=== PATIENT | female | born 1955 | race Caucasian/White ===

== ENCOUNTER 2021-10-12 09:16 | Emergency (ER) | payer MEDICARE, SELFPAY ==
[2021-10-12 09:17] VITALS: BP 164/80; PULSE 57; RESP 22; TEMP 35.4; O2SAT 98; BMI 39.2
--- NOTE | 2021-10-12 09:25 | EDS_ITS ---
HPI History of Present Illness Chief Complaint: Upper Extremity Injury Detail of Chief Complaint: Injury to right shoulder Informant: patient Narrative Narrative: Patient presents with a fall and injury to her right shoulder that occurred this morning while taking her grandson to the bus stop. Patient is right-hand dominant. She denies striking her head. She denies loss of consciousness. She denies neck or chest pain. She denies abdominal pain. She has been ambulatory in the department. PFSH PFSH Home Medications albuterol sulfate [Ventolin Hfa] 18 g INHALATION BID 03/24/16 [History Last Taken Unknown] escitalopram oxalate 20 mg PO DAILY 03/24/16 [History Last Taken Unknown] hydrochlorothiazide 12.5 mg PO DAILY 03/24/16 [History Last Taken Unknown] metoprolol tartrate 50 mg PO DAILY 03/24/16 [History Last Taken Unknown] hydrocodone-acetaminophen 1 tab PO Q4H PRN PRN 2 Days #15 tablet 10/12/21 [Rx Last Taken Unknown] Allergy/AdvReac Type Severity Reaction Status Date / Time No Known Allergies Allergy Verified 10/12/21 09:17 Social History Smoking Status: Never smoker ROS ROS ED Constitutional Constitutional ED: Reports systems reviewed and no addt'l complaints, except as documented; Denies body ache(s), change in weight or chills Eyes Eyes: Denies acute decrease in peripheral vision, change in vision, double vision or loss of vision ENT ENT ED: Reports none; Denies ear pain, lip swelling, loss taste/smell, neck pain, otalgia or sore throat Cardiovascular Cardiovascular: Reports none; Denies abdominal pain, chest pain with activity, leg edema, lightheadedness, palpitations, rapid heart rate or syncope Respiratory/Chest Respiratory/Chest: Reports none; Denies change in mental status, dry cough, dyspnea, hemoptysis, shortness of breath at rest or shortness of breath with exertion Gastrointestinal Gastrointestinal: Reports none; Denies abdominal pain, change in stool character, diarrhea, hematemesis, hematochezia, melena, rectal bleeding or vomiting Genitourinary Genitourinary ED: Reports none; Denies abdominal discomfort, anuria, dysuria, genital pain or polyuria Musculoskeletal Musculoskeletal: Reports none and other Details: Right shoulder pain after fall ; Denies arthralgias, back pain, difficulty walking, extremity pain, muscle weakness or myalgias Integumentary Reports none; Denies abscess or rash Neurologic Neurologic: Reports none; Denies abnormal gait, confusion, focal weakness, frequent falls, headache(s), loss of vision, numbness, paresthesias, radicular pain, vertigo or weakness Psychiatric Psychiatric: Reports systems reviewed and no addt'l complaints, except as documented and none; Denies behavioral changes, confusion, difficulty concentrating, hallucinations, suicidal ideation, tactile hallucinations or visual hallucinations Endocrine Endocrinology: Denies none, cold intolerance, excessive sweating, fatigue or heat intolerance Hematologic/Lymphatic Hematologic/Lymphatic: Reports none; Denies anemia, easy bleeding or easy bruising Allergic/Immunologic Allergic/Immunologic ED: Denies as per HPI, none, lip swelling, mouth swelling, throat swelling, tongue swelling or hives EXAM Physical Exam Const Vital Signs: 10/12/21 09:17 Temperature 95.7 F L Temperature Source Temporal Pulse Rate 57 L Respiratory Rate 22 H Blood Pressure 164/80 H Blood Pressure Mean 108 Pulse Ox 98 Oxygen Delivery Method Room Air Positive well nourished and well developed General Appearance ED: well developed and NAD HEENT Reports TM's clear and moist mucous membranes normocephalic and atraumatic; Negative for trauma or tenderness Tympanic Membrane ED: Yes TM's clear Eyes PERRL and EOMs intact bilaterally General Eye ED: Negative for pale conjunctiva or scleral icterus Neck no lymphadenopathy, supple and no JVD General: Negative for tenderness Chest Wall inspection of chest normal and palpation of chest normal Chest: Negative for tenderness Resp normal respiratory effort and clear to auscultation bilaterally Effort and Inspection: Negative for respiratory distress or pain with movement Auscultation: Negative for rhonchi, wheezes or diminished lung sounds Cardio regular rate, regular rhythm, S1 normal heart sound, S2 normal heart sound and no murmurs Peripheral Pulses: pulses 2+ throughout GI normal to inspection, nondistended, normoactive bowel sounds, soft to palpation, non-tender, non-distended and no masses Back/Spine no CVA tenderness and no thoracic nor lumbar tenderness Extremity Extremity Narrative: Patient with tenderness over the right glenohumeral joint. There is no obvious deformity or sulcus sign. She has limited range of motion secondary to pain. She is neurovascular intact distally. No pain at the elbow or wrist noted. General Extremety ED: Negative for edema General Extremity: Negative for edema Neuro oriented x3, CN's II-XII intact bilaterally, no sensory deficits noted and gait normal Sensorium / Orientation: awake, alert, oriented to person, oriented to place and oriented to time Motor Exam: strength 5/5 throughout and strength abnormal Psych mental status grossly normal Skin no rashes or lesions noted and no wounds MDM MDM MDM Narrative Medical decision making narrative: On my interpretation of patient's right shoulder x-rays it is noted that she has a proximal humerus fracture without evidence of dislocation. Patient was placed in a sling. She will be given referral to orthopedics. She was given 1 Wingate for pain and a prescription for Wingate. Radiography Diagnostic Testin view x-rays of right shoulder obtained interpreted by myself as a proximal humerus fracture. Official report from radiology pending. Discharge Plan Triage Chief Complaint: Upper Extremity Injury ED Provider: Praveen Abebe Dx/Rx/DC Orders Clinical Impression: Closed fracture of proximal end of right humerus Instructions: Understanding a Humerus Fracture, ED Fracture, Upper Extremity Prescriptions: New hydrocodone-acetaminophen [hydrocodone-acetaminophen] 1 TABLET tablet 1 tab PO Q4H PRN PRN (Reason: Pain) 2 Days Qty: 15 RF: 0 No Action metoprolol tartrate 50 MG tablet 50 mg PO DAILY RF: 0 albuterol sulfate [Ventolin HFA] 18 GM HFA aerosol inhaler 18 g inhalation BID RF: 0 escitalopram oxalate 20 MG tablet 20 mg PO DAILY RF: 0 hydrochlorothiazide 12.5 MG tablet 12.5 mg PO DAILY RF: 0 Primary Care Provider: Alexia Linares Referrals: Alexia Linares MD [Primary Care Provider] - Terrance Mcdaniel MD [STAFF PHYSICIAN] - 3-5 Days Disposition Disposition: Home, Self Care
--- NOTE | 2021-10-12 09:25 | RAD_ITS ---
STUDY: X-RAY - RIGHT SHOULDER REASON FOR EXAM: Female, 65 years old. Injury TECHNIQUE: 2 view(s) of the shoulder. COMPARISON: None. FINDINGS: Normal glenohumeral articulation. Normal acromioclavicular joint. Normal acromion. There is evidence of a comminuted nondisplaced fracture of the surgical neck of the humerus with extension to the greater tuberosity. Surgical clips are seen in the left axillary region. Normal visualized pulmonary apex. RAD/Shoulder min 2 Views IMPRESSION: Comminuted nondisplaced fracture of the surgical neck of the humerus with extension to the greater tuberosity. Electronically Signed: Jeff Clinton MD at 9:54 EST , Service support ,
[2021-10-12] MEDS: HYDROcodone Bitartrate/Apap 5/325 Tablet PO (09:58)
== END 2021-10-12 10:09 | disposition home or self-care (01) ==
PROVIDERS: Emergency Provider Emergency Medicine; PCP Internal Medicine; Visit Provider Emergency Medicine
DX: S42.201A Unspecified fracture of upper end of right humerus, initial encounter for closed fracture (principal); W19.XXXA Unspecified fall, initial encounter; Z79.899 Other long term (current) drug therapy
CPT/HCPCS: 73030; 99283

== ENCOUNTER 2021-10-17 16:04 | Outpatient (CLI) | payer MEDICARE, SELFPAY ==
--- NOTE | 2021-10-17 16:11 | CT_ITS ---
STUDY: CT RIGHT SHOULDER REASON FOR EXAM: Right proximal humeral fracture, surgical planning. TECHNIQUE: The patient was scanned in a multi detector CT scanner. High resolution transaxial imaging was performed without the administration of intravenous contrast material. Sagittal and coronal images were reconstructed. Individualized dose optimization techniques were used for this CT. COMPARISON: Radiographs 10/12/2021. FINDINGS: There is a glenohumeral joint effusion without glenohumeral subluxation. Normal glenoid rim, neck and visualized scapula. There is a comminuted fracture of the surgical neck of the humerus with impaction and extension of the fracture into the greater tuberosity (coronal reconstructions 46-55) with the humeral shaft displaced approximately 1.1 cm anteriorly. Normal coracoid process. Normal visualized lateral clavicle. There is mild acromioclavicular arthrosis (coronal reconstruction 56) without undersurface osteophytes. There is a Type II morphology (curved), with a neutral orientation. Normal visualized muscles. There are surgical clips in the axilla. CT/Extremity Upper without Contra IMPRESSION: Comminuted fracture of the surgical neck with impaction and extension into the greater tuberosity. Electronically Signed: Reggie Mas MD at 14:51 EST ,
== END 2021-10-17 23:59 | disposition short-term general hospital (02) ==
LOC: CT 16:11
PROVIDERS: PCP Internal Medicine; Referring Provider Specialist; Visit Provider Specialist
DX: S42.231A 3-part fracture of surgical neck of right humerus, initial encounter for closed fracture (principal)
CPT/HCPCS: 73200

== ENCOUNTER 2022-06-04 15:00 | Outpatient (RCR) | payer MEDICARE, SELFPAY ==
--- NOTE | 2021-12-08 08:18 | HP.PTEVAL ---
Patient's Visit Information YOAV GARCIA is a 65 year old F referred to Physical Therapy by Dr. Jamie Cordero MD with a diagnosis of Right Humerus Fracture. Date of Evaluation: 12/07/21 Physical Therapist: Mei Chapa DPT - Visit Plan Frequency: 2-3x /Week Duration: 4 Weeks Plan: Right Shoulder Fracture 10/13/21- Phase 1 and Phase 2. HEP Given IE: Postural education, table walk away, cane flexion supine and pendulums - Subjective October 13 she fell and broke her right arm- headed to ER immediately- they took x-rays and put her in a sling and sent her home with a referral to ortho. Saw Dr. Quevedo- he was going out of town for 2-3 weeks but told her she needed a total shoulder- put her with Dr. Regan. They wanted a 2nd opinion from Dr. Cordero who didn't think that surgery would help so he wants her to heal on her own. He does not feel that she will be able to raise her arm all the way again. Right hand dominate- that has been the toughest part. She has help from family as needed- she lives fully I with all ADL's. The arm is better- she can't lift if very far, carry weight or use it normally. Majority of her pain is at night- sleep is disturbed. Has been without the sling for almost a week. Pain is located in the anterior delt and the bicep, AC joint and under the arm. Has a problem getting deodorant under her arms. Worst: 7/10 Best: 0/10 Eases: resting in sling position, ice pack. Has been back to see him and has had 3 sets of x-rays he is very happy with healing. Sleep: ice and Percocet- slept in her bed the last two nights. Decreased machine edge bander strength and finger dexterity. No N/T in the fingers. No cervical pain, CHOI, blurred vision or dizziness. Goals: get back to fully normal. 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 PMHx/Meds: no changes since ED visit with the exception of Percocet. - Objective Posture: FH, RS- guards the right UE- no sling. Palpation: tender along upper trap, levator, bicipital groove, anterior deltoid, and biceps to the elbow. ROM: Cervical: WFL, Elbow/Wrist/Hand: AROM: Flexion: 60 degrees, Abd: 60 degrees, IR: outer pocket, ER: 40 degrees PROM: severe guarding- no significant increase in motion testing. Strength: not tested due to restrictions and pain levels. - Balance/Special Test Scores Quick DASH Score: 77.2725 - Goals Goal 1:: Patient will be I with HEP and progression Goal Time Frame: 4-6 Weeks Goal 2:: Patient will maintain proper posture t/o tx session to demo increased scap s/s. Goal Time Frame: 4-6 Weeks Goal 3:: Patient will demo full AROM of the right shoulder Goal Time Frame: 4-6 Weeks - Rehabilitation Potential Physical Therapy Diagnosis: Patient presents with hypomobility- she has decreased pain free ROM, UE and scapular strength/stabilization and muscular endurance s/p fall. Rehabilitation Potential: Good - Anticipated Interventions Patient/Client Instruction: Educate patient on: Benefits of Fitness Program Therapeutic Exercise to Include: Strength training, Endurance training, Balance training, Coordination, Agility training, Body mechanics, Postural training, Flexibilty training, Neuromotor development, Passive ROM, Active ROM, Dynamic Lumbar Stabilization, Scapular Strength/Stabilization For the Purpose of:: To improve muscle performance and motor function TENS: Yes Cryotherapy (ice pack, ice massage): Yes Thermo therapy (hot pack): Yes Thank you for the opportunity to evaluate your patient. For Medicare and Medicare HMO plans, please review the plan of care and approve it. It will need to be FAXED BACK to us at [phone] for Medicare purposes. For Medicare only, by signing this I certify the plan of care. Please let me know if there are questions or concerns regarding this plan of care. Physician Signature: Date:
--- NOTE | 2022-01-08 16:28 | HP.PTREVAL ---
Dr. Jamie Cordero MD, It has been my pleasure to treat YOAV GARCIA over the last 11 visits for Right Humerus Fracture. Please see the progress note below for an update on the physical therapy plan of care! Subjective: Patient reports that her shoulder has more movement and less pain. She is back to work but she is mostly using her left hand. Does have soreness when she does things but its more latent soreness that goes up into her neck. Worst: 11/30 Best: 10/02. Still is unable to wipe herself with her right hand. Does not have a MD apt- but will go back if she needs to. She is now able to put her hair up in a clip. Objective/Function: Posture: FH, RS- less guarding of the right. Palpation: tender along upper trap, levator, bicipital groove, anterior deltoid, and biceps to the elbow. ROM: Cervical: WFL, Elbow/Wrist/Hand: AROM: Flexion: 90 degrees, Abd: 70 degrees, IR: outer pocket, ER: 40 degrees Elbow: WFL. She can reach to touch her other ear and place her hand on the side of her head Plan Plan: 01/08/22: Phase 1 and Phase 2. Right Shoulder Fracture 10/13/21- Phase 1 and Phase 2 Balance/Gait/Functional tests - Balance/Special Test Scores Quick DASH Score: 65.9075 Goals Goal 1:: Patient will be I with HEP and progression Goal Time Frame: 4-6 Weeks Goal Progress: Progressing Goal 2:: Patient will maintain proper posture t/o tx session to demo increased scap s/s. Goal Time Frame: 4-6 Weeks Goal Progress: Progressing Goal 3:: Patient will demo full AROM of the right shoulder Goal Time Frame: 4-6 Weeks Goal Progress: Progressing Anticipated Interventions Patient/Client Instruction: Educate patient on: Benefits of Fitness Program Therapeutic Exercise to Include: Strength training, Endurance training, Balance training, Coordination, Agility training, Body mechanics, Postural training, Flexibilty training, Neuromotor development, Passive ROM, Active ROM, Dynamic Lumbar Stabilization, Scapular Strength/Stabilization For the Purpose of:: To improve muscle performance and motor function TENS: Yes Cryotherapy (ice pack, ice massage): Yes Thermo therapy (hot pack): Yes Please do not hesitate to contact me at [phone] by phone or if you have questions or concerns regarding this new plan of care! Sincerely, RADHA RaeT
--- NOTE | 2022-02-01 15:53 | HP.PTREVAL_ITS ---
Dr. Jamie Cordero MD, It has been my pleasure to treat YOAV GARCIA over the last 19 visits for Right Humerus Fracture. Please see the progress note below for an update on the physical therapy plan of care! Subjective: Patient reports that she is getting better. The pain is minimal to moderate. After therapy she is exhausted but in a good way. Worst: 10/02. Work is getting easier and so is sleep. She has some night that she is sleeping in her bed. She is still having problems getting her hand behind her back to wipe herself but its better better. She is not on any pain medication and is able to lift with it more. Objective/Function: Posture: improved-not guarding the right UE Palpation: tender along upper trap, levator, bicipital groove, anterior deltoid, and biceps to the elbow. ROM: Cervical: WFL, Elbow/Wrist/Hand: AROM: Flexion: 105 degrees, Abd: 90 degrees, IR: outer pocket, ER: 46 degrees Elbow: WFL. She can reach to touch her other ear and place her hand on the side of her head Plan Plan: 01/08/22: Phase 1 and Phase 2. Right Shoulder Fracture 10/13/21- Phase 1 a nd Phase 2 Balance/Gait/Functional tests - Balance/Special Test Scores Quick DASH Score: 36.3625 Goals Goal 1:: Patient will be I with HEP and progression Goal Time Frame: 4-6 Weeks Goal Progress: Progressing Goal 2:: Patient will maintain proper posture t/o tx session to demo increased scap s/s. Goal Time Frame: 4-6 Weeks Goal Progress: Progressing Goal 3:: Patient will demo full AROM of the right shoulder Goal Time Frame: 4-6 Weeks Goal Progress: Progressing Anticipated Interventions Patient/Client Instruction: Educate patient on: Benefits of Fitness Program Therapeutic Exercise to Include: Strength training, Endurance training, Balance training, Coordination, Agility training, Body mechanics, Postural training, Flexibilty training, Neuromotor development, Passive ROM, Active ROM, Dynamic Lumbar Stabilization, Scapular Strength/Stabilization For the Purpose of:: To improve muscle performance and motor function TENS: Yes Cryotherapy (ice pack, ice massage): Yes Thermo therapy (hot pack): Yes Please do not hesitate to contact me at [phone] by phone or if you have questions or concerns regarding this new plan of care! Sincerely, RADHA RaeT
--- NOTE | 2022-02-28 16:45 | HP.PTREVAL ---
Dr. Jamie Cordero MD, It has been my pleasure to treat YOAV GARCIA over the last 27 visits for Right Humerus Fracture. Please see the progress note below for an update on the physical therapy plan of care! Subjective: Patient reports that she is still having pain- comes and goes depending on what she is doing- mostly in the late evening- heat/cold whichever one she feels is going to help- Worst: 11/02. She is able to get a clip in but no ponytail- she can't reach behind her back. She was able to do yardwork last week- all week. Feels that she is making progress. Goals: more range of motion and functional mobility. Objective/Function: Posture: Improved-not guarding the right UE. Palpation: tender along upper trap, levator, bicipital groove, anterior deltoid, and biceps to the elbow. ROM: Cervical: WFL, Elbow/Wrist/Hand: AROM: Flexion: 115 degrees, Abd: 90 degrees, IR: outer pocket, ER: 50 degrees Elbow: WFL. She can reach to touch her other ear and place her hand on the side of her head. PROM: Flexion: 120 degrees, Abd: 120 degrees Plan Plan: 02/28/22: Continue with POC- no return to MD- start strengthening. 01/08/22: Phase 1 and Phase 2. Right Shoulder Fracture 10/13/21- Phase 1 and Phase 2 Balance/Gait/Functional tests - Balance/Special Test Scores Quick DASH Score: 36.3625 Goals Goal 1:: Patient will be I with HEP and progression Goal Time Frame: 4-6 Weeks Goal Progress: Progressing Goal 2:: Patient will maintain proper posture t/o tx session to demo increased scap s/s. Goal Time Frame: 4-6 Weeks Goal Progress: Progressing Goal 3:: Patient will demo full AROM of the right shoulder Goal Time Frame: 4-6 Weeks Goal Progress: Progressing Anticipated Interventions Patient/Client Instruction: Educate patient on: Benefits of Fitness Program Therapeutic Exercise to Include: Strength training, Endurance training, Balance training, Coordination, Agility training, Body mechanics, Postural training, Flexibilty training, Neuromotor development, Passive ROM, Active ROM, Dynamic Lumbar Stabilization, Scapular Strength/Stabilization For the Purpose of:: To improve muscle performance and motor function TENS: Yes Cryotherapy (ice pack, ice massage): Yes Thermo therapy (hot pack): Yes Please do not hesitate to contact me at [phone] by phone or if you have questions or concerns regarding this new plan of care! Sincerely, RADHA RaeT
--- NOTE | 2022-04-02 15:58 | HP.PTREVAL ---
Dr. Jamie Cordero MD, It has been my pleasure to treat YOAV GARCIA over the last 40 visits for Right Humerus Fracture. Please see the progress note below for an update on the physical therapy plan of care! Subjective: Patient reports that she feels her arm is getting better. She feels that she has more range of motion and she can get it farther around her back. She has a little bit of pain in it - Worst: 2-3/10. Does have not have to go back to the MD unless she wants to- when she is ready to give up here. Objective/Function: Posture: Improved-not guarding the right UE. Palpation: tender along upper trap, levator, bicipital groove, anterior deltoid, and biceps to the elbow. ROM: Cervical: WFL, Elbow/Wrist/Hand: AROM: Flexion: 120 degrees, Abd: 100 degrees, IR: belt line of pocket, ER: 50 degrees Elbow: WFL. She can reach to touch her other ear and place her hand on the side of her head. Plan Plan: 04/02/22: Continue with POC. 02/28/22: Continue with POC- no return to MD- start strengthening. 01/08/22: Phase 1 and Phase 2. Right Shoulder Fracture 10/13/21- Phase 1 and Phase 2 Balance/Gait/Functional tests - Balance/Special Test Scores Quick DASH Score: 36.3625 Goals Goal 1:: Patient will be I with HEP and progression Goal Time Frame: 4-6 Weeks Goal Progress: Progressing Goal 2:: Patient will maintain proper posture t/o tx session to demo increased scap s/s. Goal Time Frame: 4-6 Weeks Goal Progress: Progressing Goal 3:: Patient will demo full AROM of the right shoulder Goal Time Frame: 4-6 Weeks Goal Progress: Progressing Anticipated Interventions Patient/Client Instruction: Educate patient on: Benefits of Fitness Program Therapeutic Exercise to Include: Strength training, Endurance training, Balance training, Coordination, Agility training, Body mechanics, Postural training, Flexibilty training, Neuromotor development, Passive ROM, Active ROM, Dynamic Lumbar Stabilization, Scapular Strength/Stabilization For the Purpose of:: To improve muscle performance and motor function TENS: Yes Cryotherapy (ice pack, ice massage): Yes Thermo therapy (hot pack): Yes Please do not hesitate to contact me at [phone] by phone or if you have questions or concerns regarding this new plan of care! Sincerely, RADHA RaeT
--- NOTE | 2022-06-20 15:41 | HP.PTREVAL ---
Dr. Jamie Cordero MD, It has been my pleasure to treat YOAV GARCIA over the last 54 visits for Right Humerus Fracture. Please see the progress note below for an update on the physical therapy plan of care! Subjective: States she's more sore this week. States the ant shld joint is a constant very sore (about 2/10. Objective/Function: Stressed to pt the importance of doing her IR stretching at home (raegan the sleeper stretch) - admits she is not doing this. Motion will not come back without stretching through the scar tissues and elongating the tight muscles. Plan Plan: 05/03/22: Continue with POC. 04/02/22: Continue with POC. 02/28/22: Continue with POC- no return to MD- start strengthening. 01/08/22: Phase 1 and Phase 2. Right Shoulder Fracture 10/13/21- Phase 1 and Phase 2 Balance/Gait/Functional tests - Balance/Special Test Scores Quick DASH Score: 36.3625 Goals Goal 1:: Patient will be I with HEP and progression Goal Time Frame: 4-6 Weeks Goal Progress: Progressing Goal 2:: Patient will maintain proper posture t/o tx session to demo increased scap s/s. Goal Time Frame: 4-6 Weeks Goal Progress: Progressing Goal 3:: Patient will demo full AROM of the right shoulder Goal Time Frame: 4-6 Weeks Goal Progress: Progressing Anticipated Interventions Patient/Client Instruction: Educate patient on: Benefits of Fitness Program Therapeutic Exercise to Include: Strength training, Endurance training, Balance training, Coordination, Agility training, Body mechanics, Postural training, Flexibilty training, Neuromotor development, Passive ROM, Active ROM, Dynamic Lumbar Stabilization, Scapular Strength/Stabilization For the Purpose of:: To improve muscle performance and motor function TENS: Yes Cryotherapy (ice pack, ice massage): Yes Thermo therapy (hot pack): Yes Please do not hesitate to contact me at [phone] by phone or if you have questions or concerns regarding this new plan of care! Sincerely, Mei Chapa DPT
== END 2022-06-04 18:28 | disposition home or self-care (01) ==
LOC: PT 15:00
PROVIDERS: PCP Internal Medicine; Referring Provider Orthopaedic Surgery; Visit Provider Orthopaedic Surgery
DX: S42.231D 3-part fracture of surgical neck of right humerus, subsequent encounter for fracture with routine healing (principal)
CPT/HCPCS: 97110; 97162; 97164; 97530

== ENCOUNTER 2022-07-30 15:00 | Outpatient (RCR) | payer MEDICARE, SELFPAY ==
--- NOTE | 2022-07-30 15:37 | HP.PTREVAL ---
Dr. Jamie Cordero MD, It has been my pleasure to treat YOAV GARCIA over the last 67 visits for . Please see the progress note below for an update on the physical therapy plan of care! Subjective: Patient reports that she continues to get improve. She doesn't feel like she is done progressing yet. Tired from therapy today Objective/Function: Posture: Improved-not guarding the right UE. Palpation: tender along upper trap, levator, bicipital groove, anterior deltoid, and biceps to the elbow. ROM: Cervical: WFL, Elbow/Wrist/Hand: AROM: Flexion: 143 degrees, Abd: 135 degrees, IR: belt line pocket ER: 70 degrees Elbow: WFL. She can reach to touch her other ear and place her hand on the side of her head. Plan Plan: 06/20/22: Continue 2x a week for 6 weeks. Cont IR ROM and global strength. Anticipated Interventions Please do not hesitate to contact me at [phone] by phone or if you have questions or concerns regarding this new plan of care! Sincerely, Mei Chapa DPT
--- NOTE | 2022-10-08 10:31 | HP.PT.NRP ---
YOAV GARCIA was seen in my office for initial evaluation on . The following Plan of Care was established for this patient: This patient was last seen in our office . Pertinent comments regarding their Physical therapy will appear below: Patient has reached goals and is appropriate to continue HEP- encouraged to call if questions. dc At this point I will be discontinuing this patient from physical therapy. I would be happy to see this patient again in the future if found appropriate by the physician. Thank you! RADHA RaeT
== END 2022-07-30 19:00 | disposition home or self-care (01) ==
LOC: PT 15:00
PROVIDERS: PCP Internal Medicine; Referring Provider Orthopaedic Surgery; Visit Provider Orthopaedic Surgery
DX: S42.231D 3-part fracture of surgical neck of right humerus, subsequent encounter for fracture with routine healing (principal)
CPT/HCPCS: 97110; 97164